=== PATIENT | female | born 1955 | race Caucasian/White ===

== ENCOUNTER 2020-12-13 02:05 | Day surgery (SDC) | payer MEDICARE, SELFPAY ==
[2020-12-06 08:44] VITALS: BMI 26.0
--- NOTE | 2020-12-13 07:23 | PM.HPGS ---
History of Present Illness History of Present Illness Consent: Risks, benefits, and alternatives have been discussed and questions answered. Patient agrees to proceed with procedure. Chief complaint: neoplasm screening Narrative: Va Slater is a 65 year old female here for screening colonoscopy Review of Systems Review of Systems: All systems reviewed & are unremarkable except as noted in HPI and below PMFSH Past Medical History Medical History (Updated 12/13/20 @ 09:19 by Jorge Joshua MD) Atrial fibrillation Breast CA Chronic GERD Hypercholesterolemia Surgical History Surgical History (Updated 12/13/20 @ 09:19 by Jorge Joshua MD) S/P ablation of atrial fibrillation Family History Family History Father Family history of lung cancer, Onset Age: 85 Other Carcinoma of colon Social History Social History Smoking packs per day: 1 Smoking cigarettes per day: 20.0 Years smoked: 15 Smoking pack-years: 15.00 Smoking status: Former smoker Tobacco type: cigarettes Smoking end date: 04/23/10 Alcohol intake: current Drinks per week: 4 Living arrangements: with family Spiritual care concerns: No Meds Home Medications and Allergies Home Medications Medication Instructions Recorded Confirmed Type apixaban [Eliquis] 5 mg PO DAILY 12/06/20 12/06/20 History calcium carbonate 600 mg PO BID 12/06/20 12/06/20 History diltiazem HCl 300 mg PO DAILY 12/06/20 12/06/20 History dronedarone [Multaq] 400 mg PO BID 12/06/20 12/06/20 History fexofenadine [Prema] 180 mg PO DAILY 12/06/20 12/06/20 History multivit with min-folic acid 1 tablet PO DAILY 12/06/20 12/06/20 History [Adult One Daily Multivitamin] omeprazole 20 mg PO DAILY 12/06/20 12/06/20 History pravastatin 40 mg PO DAILY 12/06/20 12/06/20 History sertraline 50 mg PO DAILY 12/06/20 12/06/20 History Allergies Allergy/AdvReac Type Severity Reaction Status Date / Time atorvastatin AdvReac Muscle Pain Verified 12/13/20 09:16 Exam Resp: Auscultation: clear to auscultation bilaterally Cardio: Rate: regular rate Rhythm: regular rhythm GI: GI Palp: Yes Soft to palpation and No Tenderness to palpation present (GI) Assessment and Plan Assessment and plan (1) Colon cancer screening: Code(s): Z12.11 - Encounter for screening for malignant neoplasm of colon Status: Acute Assessment and Plan: Colonoscopy with possible biopsy or polypectomy or cautery or injection of substances.
[2020-12-13 09:17] VITALS: BP 131/72; PULSE 72; RESP 18; TEMP 36.1; O2SAT 99
--- NOTE | 2020-12-13 09:17 | WPDANESEPPF ---
Anes - Initial Pre Proc Eval Procedure: Operation Date: 12/13/20 10:00 Proposed Procedures p Screening Colonoscopy - Willie Holt MD Date/Time: 12/13/20 09:17 Surgeon: Willie Holt MD Pre Op Diagnosis: neoplasm screening Patient Data Age: 65 Gender: F Height: 1.75 m Weight: 80 kg Allergies Allergy/AdvReac Type Severity Reaction Status Date / Time atorvastatin AdvReac Muscle Pain Verified 12/13/20 09:16 Home Medications Medication Instructions Recorded Confirmed Type apixaban [Eliquis] 5 mg PO DAILY 12/06/20 12/06/20 History calcium carbonate 600 mg PO BID 12/06/20 12/06/20 History diltiazem HCl 300 mg PO DAILY 12/06/20 12/06/20 History dronedarone [Multaq] 400 mg PO BID 12/06/20 12/06/20 History fexofenadine [Prema] 180 mg PO DAILY 12/06/20 12/06/20 History multivit with min-folic acid 1 tablet PO DAILY 12/06/20 12/06/20 History [Adult One Daily Multivitamin] omeprazole 20 mg PO DAILY 12/06/20 12/06/20 History pravastatin 40 mg PO DAILY 12/06/20 12/06/20 History sertraline 50 mg PO DAILY 12/06/20 12/06/20 History Patient hx anesthesia problems: none Family hx anesthesia problems: none PMFSH Past Medical History Medical History (Updated 12/13/20 @ 09:19 by Jorge Joshua MD) Atrial fibrillation Breast CA Chronic GERD Hypercholesterolemia Surgical History Surgical History (Updated 12/13/20 @ 09:19 by Jorge Joshua MD) S/P ablation of atrial fibrillation Family History Family History Father Family history of lung cancer, Onset Age: 85 Other Carcinoma of colon Social History Social History Smoking packs per day: 1 Smoking cigarettes per day: 20.0 Years smoked: 15 Smoking pack-years: 15.00 Smoking status: Former smoker Tobacco type: cigarettes Smoking end date: 04/23/10 Alcohol intake: current Drinks per week: 4 Living arrangements: with family Spiritual care concerns: No Anes - Eval Final PreProcedure Day of Procedure 12/13/20 09:17 Patient weight: overweight Heart: regular rate and rhythm Lungs: clear to auscultation and normal air movement Airway: Mallampati scale class II Neurological: alert and oriented Last oral intake: >/= 8 hours ASA classification: III Emergent: no Anesthetic plan: proceed Anesthesia type and monitoring: general GIVS Informed Consent: The patient's anesthetic plan and its attendant risks and benefits were discussed with the patient/family/POA. Questions were solicited and answers provided to the satisfaction of the patient/family/POA.
[2020-12-13] MEDS: LACTATED RINGERS 1,000 ML 150 ML IV CONT (09:30)
[2020-12-13 10:02] VITALS: BP 106/51; PULSE 71; RESP 14; O2SAT 99
[2020-12-13 10:12] VITALS: BP 103/75; PULSE 70; RESP 16; O2SAT 100
[2020-12-13 10:22] VITALS: BP 121/49; PULSE 71; RESP 25; O2SAT 99
== END 2020-12-13 10:34 | disposition home or self-care (01) ==
PROVIDERS: Referring Provider Obstetrics & Gynecology Gynecology; Visit Provider Internal Medicine Gastroenterology
PROC: 0DJD8ZZ Inspection of Lower Intestinal Tract, Via Natural or Artificial Opening Endoscopic (ICD-10-PCS; CPT 45378; principal; 2020-12-13 10:00)
DX: Z12.11 Encounter for screening for malignant neoplasm of colon (principal); K64.4 Residual hemorrhoidal skin tags; K57.30 Diverticulosis of large intestine without perforation or abscess without bleeding; K63.5 Polyp of colon; Z79.01 Long term (current) use of anticoagulants; I48.91 Unspecified atrial fibrillation; K21.9 Gastro-esophageal reflux disease without esophagitis; E78.00 Pure hypercholesterolemia, unspecified; Z87.891 Personal history of nicotine dependence; Z85.3 Personal history of malignant neoplasm of breast
CPT/HCPCS: 45380; 88305; J2704; J7120

== ENCOUNTER 2021-01-27 11:28 | Emergency (ER) | payer MEDICARE, SELFPAY ==
[2021-01-27 11:39] VITALS: BP 137/84; PULSE 80; RESP 18; TEMP 37; O2SAT 97
--- NOTE | 2021-01-27 12:01 | ED.FEMALEGU ---
HPI - Female Genitourinary General Chief complaint: Urogenital-Female Stated complaint: UTI Time Seen by Provider: 01/27/21 11:53 Source: patient History of Present Illness HPI Narrative: Patient presents today complaining of dysuria, hematuria, lower abdominal pain and pressure, and fever up to 100.6 since 1800 last night. Denies nausea or vomiting, frequency or urgency. She has been taking Tylenol and Pyridium with relief. No recent antibiotic use. MD elicited complaint: dysuria Related Data Home Medications Medication Instructions Recorded Confirmed Adult One Daily Multivitamin 1 tablet PO DAILY 12/06/20 01/27/21 Eliquis 5 mg PO DAILY 12/06/20 01/27/21 Multaq 400 mg PO BID 12/06/20 01/27/21 calcium carbonate 600 mg PO BID 12/06/20 01/27/21 diltiazem HCl 300 mg PO PRN PRN 12/06/20 01/27/21 fexofenadine 180 mg PO DAILY 12/06/20 01/27/21 omeprazole 20 mg PO DAILY 12/06/20 01/27/21 pravastatin 40 mg PO DAILY 12/06/20 01/27/21 sertraline 50 mg PO DAILY 12/06/20 01/27/21 Allergies Allergy/AdvReac Type Severity Reaction Status Date / Time atorvastatin AdvReac Intermediate Muscle Pain Verified 01/27/21 12:01 Review of Systems Review of Systems: CONSTITUTIONAL: Denies body aches, chills, or sweats.+ Fever EYES: Denies visual changes, redness, or discharge. ENT: Denies rhinorrhea, congestion, sore throat, or otalgia. CARDIOVASCULAR: Denies chest pain, palpitations, or edema. RESPIRATORY: Denies cough or dyspnea. GASTROINTESTINAL: Denies abdominal pain, nausea, vomiting, or diarrhea. GENITOURINARY: +Dysuria, hematuria, lower abdominal pressure SKIN: Denies rash, itching, or wounds. MUSCULOSKELETAL: Denies back pain, joint pain, or myalgia. NEUROLOGIC: Denies headache, numbness, tingling, or weakness. PSYCH: Denies depression or anxiety. [facility] Past Medical History Medical History Atrial fibrillation Breast CA Chronic GERD Hypercholesterolemia Surgical History Surgical History S/P ablation of atrial fibrillation Family History Family History Father Family history of lung cancer, Onset Age: 85 Other Carcinoma of colon Social History Social History Smoking packs per day: 1 Smoking cigarettes per day: 20.0 Years smoked: 15 Smoking pack-years: 15.00 Smoking status: Former smoker Tobacco type: cigarettes Smoking end date: 04/23/10 Alcohol intake: current Drinks per week: 4 Spiritual care concerns: No Comments At time of signature, I have reviewed and agree with nursing past medical, surgical, social and family history unless otherwise noted. Please see nursing chart for further information. There is no relevant family history pertinent to the presenting complaint Exam Narrative: GENERAL: Well-appearing, well-nourished, and in no acute distress. HEAD: Normocephalic, atraumatic. EYES: EOMI. No redness or drainage. Conjunctivae normal. ENT: Mucous membranes pink and moist. . NECK: Normal AROM. CHEST: No respiratory distress. Clear to auscultation. HEART: Regular rate and rhythm. No murmur appreciated. Normal peripheral pulses. ABDOMEN: Soft, nontender, nondistended, normal active bowel sounds.-CVAT MUSCULOSKELETAL: No bony tenderness. EXTREMITIES: Normal range of motion. No edema. SKIN: Warm, dry, no rash. Capillary refill normal. Normal skin turgor. NEURO: No focal deficits. Alert and oriented x3. Gait steady. PSYCH: Normal affect. No signs of depression or anxiety. Course Vital Signs Vital signs: Vital Signs Temperature 98.6 F 01/27/21 11:39 Pulse Rate 80 01/27/21 11:39 Respiratory Rate 18 01/27/21 11:39 Blood Pressure 137/84 01/27/21 11:39 Pulse Oximetry 97 01/27/21 11:39 Temperature 98.6 F
== END 2021-01-27 12:08 | disposition home or self-care (01) ==
PROVIDERS: Emergency Provider Nurse Practitioner
DX: N30.01 Acute cystitis with hematuria (principal); Z87.891 Personal history of nicotine dependence; I48.91 Unspecified atrial fibrillation; K21.9 Gastro-esophageal reflux disease without esophagitis; E78.00 Pure hypercholesterolemia, unspecified; Z85.3 Personal history of malignant neoplasm of breast
CPT/HCPCS: 81003; 87077; 87086; 87186; 99213; G0463

== ENCOUNTER 2021-02-23 11:23 | Emergency (ER) | payer MEDICARE, SELFPAY ==
--- NOTE | ~2021-02-23 | XR_ITS ---
EXAMINATION: XR knee LT 3V DATE: 02/23/2021 13:34 INDICATION: Left knee pain, initial encounter TECHNIQUE: Three views of the left knee were obtained. COMPARISON: None. FINDINGS: A large knee joint effusion is present. There is cortical irregularity in the upper pole of the patella. Moderate tricompartmental osteoarthritis is present in the knee. IMPRESSION: 1. Cortical irregularity in the upper pole of the patella, consistent with fracture. 2. Large joint effusion. Reviewed, dictated and finalized at location B. IMPRESSION: 1. Cortical irregularity in the upper pole of the patella, consistent with frac ture. 2. Large joint effusion.
[2021-02-23 12:45] VITALS: BP 131/73; PULSE 79; RESP 18; TEMP 36.5; O2SAT 97
--- NOTE | 2021-02-23 14:05 | ED.LOWEXIN ---
HPI - Extremity Injury (Lower) General Chief Complaint: Extremity Injury, Lower Stated Complaint: knee injury Time Seen by Provider: 02/23/21 13:04 Source: patient Mode of arrival: ambulatory Limitations: no limitations History of Present Illness HPI Narrative: 65-year-old female Here for pain and swelling of the left knee This began last night when she was just out walking, she did not do anything that she thinks should have twisted it or acutely injured it She reports that she is always had crepitus in both of her knees for a long time never really had them checked out partly because they never really bothered her all that much and for instance she is able to exercise on her treadmill several times a week Related Data Home Medications Medication Instructions Recorded Confirmed Adult One Daily Multivitamin 1 tablet PO DAILY 12/06/20 01/27/21 Eliquis 5 mg PO DAILY 12/06/20 01/27/21 Multaq 400 mg PO BID 12/06/20 01/27/21 calcium carbonate 600 mg PO BID 12/06/20 01/27/21 diltiazem HCl 300 mg PO PRN PRN 12/06/20 01/27/21 fexofenadine 180 mg PO DAILY 12/06/20 01/27/21 omeprazole 20 mg PO DAILY 12/06/20 01/27/21 pravastatin 40 mg PO DAILY 12/06/20 01/27/21 sertraline 50 mg PO DAILY 12/06/20 01/27/21 Allergies Allergy/AdvReac Type Severity Reaction Status Date / Time atorvastatin AdvReac Intermediate Muscle Pain Verified 02/23/21 12:53 Review of Systems Constitutional: Constitutional: Denies chills and Denies fever(s) Musculoskeletal: Musculoskeletal: Denies back pain, Denies myalgias, Reports arthralgias and Reports joint swelling Neurologic: Denies focal weakness and Denies numbness PMFSH Past Medical History Medical History Atrial fibrillation Breast CA Chronic GERD Hypercholesterolemia Surgical History Surgical History S/P ablation of atrial fibrillation Family History Family History Father Family history of lung cancer, Onset Age: 85 Other Carcinoma of colon Social History Social History Smoking packs per day: 1 Smoking cigarettes per day: 20.0 Years smoked: 15 Smoking pack-years: 15.00 Smoking status: Former smoker Tobacco type: cigarettes Smoking end date: 04/23/10 Alcohol intake: current Drinks per week: 4 Spiritual care concerns: No Exam Const: General: cooperative, no acute distress and alert Orientation/consciousness: patient oriented x3 (alert) HENMT: Head: normocephalic and atraumatic Ears: external ears abnormal Eyes: Conjunctivae: conjunctivae normal EOM: EOMs intact bilaterally Neck: Neck: supple and no JVD Resp: Effort & Inspection: normal respiratory effort and not labored Auscultation: other (BS =) Skin: General skin exam: normal color and no rashes or lesions noted Neuro: General: patient oriented x3 (alert) and moves all extremities Speech: normal speech Extrem: General: no pedal edema Other: Left knee has an effusion She guards full range of motion There is some tenderness at the upper outer edge of the patella and questionably a defect in the quad tendon when compared to the opposite side Psych: Affect: normal affect Course Course Emergency Course: Discussed with patient, possibly a torn tendon, will need orthopedic evaluation, knee immobilizer and crutches until then Vital Signs Vital signs: Vital Signs Temperature 36.5 C 02/23/21 12:45 Pulse Rate 79 02/23/21 12:45 Respiratory Rate 18 02/23/21 12:45 Blood Pressure 131/73 02/23/21 12:45 Pulse Oximetry 97 02/23/21 12:45 Temperature 36.5 C 02/23/21 12:45 Pulse Rate 79 02/23/21 12:45 Respiratory Rate 18 02/23/21 12:45 Blood Pressure 131/73 02/23/21 12:45 Pulse Oximetry 97 02/23/21 12:45 MDM - Extremity Injury (Lower)
[2021-02-23] MEDS: KETOROLAC 30 MG/ML VIAL (*BKC) IM (14:45)
[2021-02-23 15:15] VITALS: BP 121/81; PULSE 77; RESP 18; O2SAT 97
== END 2021-02-23 15:15 | disposition home or self-care (01) ==
PROVIDERS: Emergency Provider Emergency Medicine
DX: S76.109A Unspecified injury of unspecified quadriceps muscle, fascia and tendon, initial encounter (principal); I48.91 Unspecified atrial fibrillation; K21.9 Gastro-esophageal reflux disease without esophagitis; E78.5 Hyperlipidemia, unspecified; Z85.3 Personal history of malignant neoplasm of breast; X50.0XXA Overexertion from strenuous movement or load, initial encounter
CPT/HCPCS: 73562; 96372; 99283; J1885

== ENCOUNTER → 2021-03-14 15:29 | Outpatient (CLI) | payer MEDICARE, SELFPAY ==
--- NOTE | ~2021-03-14 | MR_ITS ---
EXAMINATION: MR knee LT wo con DATE: 03/14/2021 16:10 INDICATION: Left knee pain TECHNIQUE: Magnetic resonance imaging (MRI) of the left knee was performed without intravenous contra st. Sequences included coronal PD-weighted FSE, coronal PD-weighted FS FSE, sagittal T2-weighted FSE , sagittal PD-weighted FS FSE and axial PD weighted fat saturated FSE. COMPARISON: Left knee radiographs dated 02/23/2021 FINDINGS: Medial compartment: There is medial extrusion of the medial meniscal body without discrete meniscal tear. There is deep c hondral ulceration without degenerative subchondral changes along the central weightbearing medial fe moral condyle. Less severe partial thickness cartilage loss with relatively smooth chondral surface a nd without degenerative subchondral changes along the medial tibial plateau and anterior weightbearin g medial femoral condyle. Small to moderate size marginal osteophytes are present along the weightbea ring medial femoral condyle. Lateral compartment: Lateral meniscus is normal. Partial-thickness chondral fissuring without degenerative subchondral eleuterio nges along the lateral tibial plateau and anterior weightbearing lateral femoral condyle. Patellofemoral compartment: Extensive deep chondral ulceration across the patella with remodeling of the articular cortex scatter ed cortical irregularity and subarticular marrow signal hyperintensity along the apical ridge and lat eral patellar facet. Deep chondral ulceration and fissuring with underlying cortical irregularity and minimal subarticular cystlike changes at the trochlear groove and lateral trochlea. Less severe part ial thickness cartilage loss and fissuring without degenerative subchondral changes at the medial tro chlea. Moderate-sized marginal osteophytes are present. Ligaments and tendons: Anterior and posterior cruciate ligaments are normal. The medial collateral ligament and fibular jordi ateral ligament complex are normal. The extensor mechanism is normal. The visualized medial and later al hamstring tendons as well as the iliotibial band are normal. Fluid: Moderate-sized left knee joint effusion along with nonspecific severe synovitis throughout the suprap atellar pouch. There is also fluid and synovitis throughout a large Jaramillo's cyst at the left poplitea l fossa which measures 8.5 cm craniocaudally and 3.1 x 1.7 cm in maximal transaxial dimensions. Osseous/other: Bone alignment is normal. No fracture or pathologic marrow replacing process. IMPRESSION: 1. Tricompartmental osteoarthritis, mild with moderate grade chondral malacia in the medial and later al compartments and moderate to severe with extensive high-grade chondromalacia in the patellofemoral compartment. 2. Moderate left knee joint effusion with nonspecific severe synovitis which is also present within a large Jaramillo's cyst. Reviewed, dictated and finalized at location A. [employer] MANAG[employer] SPECIALIST IMPRESSION: 1. Tricompartmental osteoarthritis, mild with moderate grade chondral malacia i n the medial and lateral compartments and moderate to severe with extensive hig h-grade chondromalacia in the patellofemoral compartment. 2. Moderate left knee joint effusion with nonspecific severe synovitis which is also present within a large Jaramillo's cyst.
== END ==
PROVIDERS: Visit Provider Nurse Practitioner Adult Health
DX: M17.12 Unilateral primary osteoarthritis, left knee (principal); M25.462 Effusion, left knee
CPT/HCPCS: 73721

== ENCOUNTER 2021-11-10 09:33 | Outpatient (RCR) | payer MEDICARE, SELFPAY ==
[2021-11-10] MEDS: ACETAMINOPHEN 325 MG TABLET 650 MG PO (10:12)
[2021-11-10] MEDS: diphenhydrAMINE HCl CAP 25 MG CAPSULE PO (10:13)
[2021-11-10] MEDS: FAMOTIDINE 20 MG TABLET PO (10:13)
[2021-11-10 10:19] VITALS: BP 121/67; PULSE 86; TEMP 36.8; O2SAT 99
[2021-11-10] MEDS: BEBTELOVIMAB 175 MG/2 ML VIAL IV PUSH (10:33)
[2021-11-10 11:13] VITALS: PULSE 73; O2SAT 98
[2021-11-10 11:14] VITALS: BP 116/69
== END 2021-11-10 16:00 ==
LOC: AMCINF 09:33
PROVIDERS: PCP Internal Medicine; Referring Provider Internal Medicine; Visit Provider Internal Medicine Hematology & Oncology
DX: U07.1 COVID-19 (principal); I25.10 Atherosclerotic heart disease of native coronary artery without angina pectoris
CPT/HCPCS: A9270; M0222; Q0222

== ENCOUNTER 2022-11-29 10:00 | Outpatient (CLI) | payer MEDICARE, SELFPAY ==
--- NOTE | ~2022-11-29 | CT_ITS ---
EXAMINATION: CT lung screening DATE: 11/29/2022 10:21 INDICATION: Z87.891 - Personal history of nicotine dependence TECHNIQUE: Computed tomography (CT) of the chest was performed without intravenous contrast. Addition al 3D reconstructions utilizing coronal maximum intensity projection (MIP) were performed. Automated exposure control and iterative reconstruction technique were employed. The dose-length product was 77 .82 mGy-cm. COMPARISON: None FINDINGS: Biapical pleural-parenchymal scarring with pleural-based calcification. There are few scattered small calcified pulmonary nodules at the left apex and in the right lower lobe consistent with old granulo matous disease. Mild discoid atelectasis in the right middle lobe and lingula. There are few bilatera lly scattered <4 mm pulmonary nodules. No pneumonia, pulmonary edema or pleural effusion. Heart size is normal. No pericardial effusion. Thoracic aorta is normal in caliber. No pathologically enlarged m ediastinal or hilar lymphadenopathy. Peripheral calcification along bilateral breast implants. Surgic al clips at the left axilla suggesting prior lymph node dissection. Borderline sized right axillary l ymph node measuring up to 10-11 mm in maximal short axis diameter. Visualized upper abdomen is unrema rkable. 23 degrees thoracic dextroscoliosis. Moderate lower cervical spondylosis. IMPRESSION: 1. Lung-RADS category 2: Benign appearance or behavior. Continue annual screening with noncontrast lo w-dose chest CT in 12 months. 2. Borderline sized right axillary lymph node measuring 10-11 mm in maximal short axis diameter most likely reactive although differential includes metastatic disease. Recommend correlation with any fang or outside imaging. Reviewed, dictated and finalized at location B. IMPRESSION: 1. Lung-RADS category 2: Benign appearance or behavior. Continue annual screeni ng with noncontrast low-dose chest CT in 12 months. 2. Borderline sized right axillary lymph node measuring 10-11 mm in maximal rafaela rt axis diameter most likely reactive although differential includes metastatic disease. Recommend correlation with any prior outside imaging.
== END 2022-11-29 10:01 | disposition home or self-care (01) ==
PROVIDERS: PCP Family Medicine; Visit Provider Family Medicine
DX: Z12.2 Encounter for screening for malignant neoplasm of respiratory organs (principal); Z87.891 Personal history of nicotine dependence
CPT/HCPCS: 71271

== ENCOUNTER 2023-12-28 10:33 | Outpatient (CLI) | payer MEDICARE, SELFPAY ==
--- NOTE | ~2023-12-28 | US_ITS ---
Limited Abdominal Sonogram: Real-time sonographic imaging of the right upper quadrant was performed. Clinical History: Right upper quadrant pain Findings: The liver appears normal with no evidence of mass lesion or bile duct dilatation. Main por shey vein demonstrates normal direction of flow. The gallbladder is well distended, and demonstrates p robable small gallbladder wall polyps measuring up to 5 mm. The common bile duct measures 3 mm. The visualized pancreas, aorta, and IVC are unremarkable. Right kidney measures 9.8 cm in length, without hydronephrosis or renal stone. Impression: Probable small gallbladder wall polyps measuring up to 5 mm. Reviewed, dictated and finalized at location M. Impression: Probable small gallbladder wall polyps measuring up to 5 mm.
== END 2023-12-28 10:34 | disposition home or self-care (01) ==
LOC: MICIMG 10:34
PROVIDERS: PCP Family Medicine; Visit Provider Nurse Practitioner Family
DX: R10.11 Right upper quadrant pain (principal)
CPT/HCPCS: 76705